=== PATIENT | male | born 1995 | race Hispanic/Latino ===

== ENCOUNTER 2017-11-15 18:27 | Emergency (ER) | payer SELFPAY ==
[2017-11-15] MEDS ORDERED: Lidocaine 1% 20 ML MDV ONE (19:17)
== END 2017-11-15 20:06 | disposition home or self-care (01) ==
LOC: SCSER 18:27
DX: S61.411A Laceration without foreign body of right hand, initial encounter (principal); W45.8XXA Other foreign body or object entering through skin, initial encounter
CPT/HCPCS: 12001; J2001

== ENCOUNTER 2017-11-23 09:52 | Day surgery (SDC) | payer OTHER ==
[2017-11-23] MEDS ORDERED: Fentanyl 100 MCG/2 ML VIAL ONE (12:50)
[2017-11-23] MEDS ORDERED: Bacitracin Zinc Ointment 30 gm TUBE ONE (12:54)
[2017-11-23] MEDS ORDERED: Betamet Acet/Betamet Na Ph 30 MG/5 ML VIAL ONE (12:54)
[2017-11-23] MEDS ORDERED: Bupivacaine PF 0.5% 30 ML VIAL ONE (12:54)
[2017-11-23] MEDS ORDERED: Midazolam HCl 2 mg/2 ml Vial ONE (13:07)
[2017-11-23] MEDS ORDERED: Ketorolac Tromethamine 30 MG/ML VIAL ONE (15:35)
[2017-11-23] MEDS ORDERED: ePHEDrine/0.9% NaCl/PF SYRINGE 50 mg/10 ml ONE (16:52)
[2017-11-23] MEDS ORDERED: Ondansetron HCl/PF 4 MG/2 ML Vial ONE (16:52)
[2017-11-23] MEDS ORDERED: PHENYLEPHRINE-NS 100 MCG/ML 10 ML SYRINGE ONE (16:52)
[2017-11-23] MEDS ORDERED: Lidocaine 1% PF 5 ML VIAL ONE (16:52)
[2017-11-23] MEDS ORDERED: Dexamethasone 20 MG/5 ML VIAL ONE (16:52)
[2017-11-23] MEDS ORDERED: PROPOFOL 200 MG/20 ML VIAL ONE (16:52)
--- NOTE | 2017-11-24 14:38 | OP ---
PREOPERATIVE DIAGNOSIS: Right extensor digitorum communis, small finger and right extensor digitorum minimi, small finger laceration. POSTOPERATIVE DIAGNOSIS: Right extensor digitorum communis, small finger and right extensor digitoru m minimi, small finger laceration. PROCEDURE PERFORMED: 1. Repair extensor digitorum communis to the right small finger. 2. Repair extensor digitorum minimi tendon, right small finger. ESTIMATED BLOOD LOSS: 10 mL. TOURNIQUET TIME: 30 minutes. SURGEON: Brenton Becerril M.D. FINDINGS: A 100% laceration both tendons with retraction. DESCRIPTION OF PROCEDURE: After successful general LMA technique, the patient had a 4 mm transverse incision with ____ and we extended the incision in a zigzag/Z fashion, 1 cm distal, 1 cm proximal. H ere, we saw there was completely cut both extensor tendons to the small finger. We identified the te ndons, including proximal and distal firmly and was approximately 1/2 mm, and then reapproximated the first extensor digitorum communis of the small finger using multiple [id number] sutures buried inside the tendon with a 4-0 Prolene using a RB1 needle. Using the same technique on the next smaller, but small extensor digitorum minimi tendon except there were less sutures. We inflated the tourniquet. Common extensor tendon, the PIP and MP joints were completely hyperextended indicative of appropriate tension and with flexion to 60 degrees. There was no gap formation. The patient then underwent tourniquet deflation. Hemostasis was obtained and closed the wound with i nterrupted 4-0 nylon in a simple pattern. Bulky dressing was applied and a splint with out to the le mariela of the PIP joint with the MP joint at -10 degrees full extension, PIP fully extended. He had nor mal refill and left the operating room without evidence of anesthetic or operative complication.
== END 2017-11-23 17:06 | disposition home or self-care (01) ==
LOC: SDC 09:52
PROVIDERS: ATTEND Orthopaedic Surgery Hand Surgery
PROC: 0KQC0ZZ Repair Right Hand Muscle, Open Approach (ICD-10-PCS; principal; 2017-11-23)
DX: S66.326A Laceration of extensor muscle, fascia and tendon of right little finger at wrist and hand level, initial encounter (principal); F41.9 Anxiety disorder, unspecified; F17.200 Nicotine dependence, unspecified, uncomplicated; W26.8XXA Contact with other sharp object(s), not elsewhere classified, initial encounter
CPT/HCPCS: 96374; J0702; J1100; J1885; J2001; J2250; J2405; J2704; J3010; S0020